=== PATIENT | female | born 1985 | race Hispanic/Latino ===

== ENCOUNTER 2019-09-22 09:26 | Outpatient (CLI) | payer OTHER ==
--- NOTE | 2019-09-22 11:50 | ULT ---
OB ULTRASOUND: Date: 09/22/2019 HISTORY: anatomy. FINDINGS: A single, live intrauterine gestation is seen, with measurements corresponding to an estimated gestat ional age of 21 weeks/1 day and JUSTIN at 02/01/2020. The estimated weight measures 394 gm or 14 o z (93% by Hadlock criteria). Biometry: BPD: 4.99 cm, 21 weeks/1 day HC: 18.72 cm, 21 weeks/1 day AC: 15.70 cm, 21 weeks/6 days FL: 3.55 cm, 21 weeks/2 days heart rate measures 149 beats/minute. Placenta is posteriorly located without evidence of placenta previa. SHAHIDA measures 17.8 cm. Cervical length measures 4.3 cm. A 3 vessel cord, cord insertion, kidneys, bladder, stomach, 4 chamber heart, lateral ventricles , cerebellum, spine, lips/nose, and upper/lower extremities are visualized. No definite anomali es are seen. IMPRESSION: Single, live intrauterine of 21 weeks/1 day estimated gestational age, and JUSTIN at 0. POS: KENY
== END 2019-09-22 09:27 | disposition home or self-care (01) ==
LOC: BICULT 09:26
PROVIDERS: ATTEND Family Medicine
DX: Z34.02 Encounter for supervision of normal first pregnancy, second trimester (principal); Z3A.21 21 weeks gestation of pregnancy
CPT/HCPCS: 76805

== ENCOUNTER 2020-01-30 23:22 | Inpatient (IN) | payer OTHER ==
[~2020-01-30 23:22] MED LIST: Bupivacaine 0.25% HCL 30 ML VIAL ONE
[2020-01-31 00:02] VITALS: BMI 27.6
[2020-01-31 00:28] LABS: Amnisure Test RUPTURE DETECTED (No Rupture)
[2020-01-31 00:29] LABS: Amnisure Internal Control QC ACCEPTABLE (ACCEPTABLE)
[2020-01-31] MEDS ORDERED: hydrALAZINE 20 MG/ML VIAL SLOW IVP PRN (00:43)
[2020-01-31] MEDS ORDERED: Misoprostol 200 MCG TAB PR PRN (00:43)
[2020-01-31] MEDS ORDERED: Acetaminophen 500 MG TAB PO PRN (00:43)
[2020-01-31] MEDS ORDERED: Ibuprofen 800 MG TAB PO PRN (00:43)
[2020-01-31] MEDS ORDERED: Lidocaine 1% (PF) 30 ML VIAL SC PRN (00:43)
[2020-01-31] MEDS ORDERED: Promethazine HCl 25 MG/ML VIAL IM PRN (00:43)
[2020-01-31] MEDS ORDERED: Ondansetron PF 4 MG/2 ML Vial IVP PRN (00:43)
[2020-01-31] MEDS ORDERED: NS w/ Oxytocin 10 units 500 ML IV SCH (01:00)
[2020-01-31] MEDS: Lactated Ringer's 1,000 ML IV SCH ×2 (01:36→18:40)
[2020-01-31] MEDS ORDERED: Butorphanol Tartrate 1 MG/ML VIAL SLOW IVP PRN (02:09)
[2020-01-31 02:14] LABS: Hemoglobin 13.2 g/dL (12.0-16.0); Mean Corpuscular HGB CONC 33.9 g/dL (32.0-36.0); Mean Corpuscular Hemoglobin 30.5 pg (27.0-31.0); Mean Corpuscular Volume 89.7 fL (78.0-98.0); Platelet Count 186 thou/uL (130-400); RBC Distribution Width 12.1 % (11.5-14.5); Red Blood Cell (RBC) Count 4.32 mill/uL (4.20-5.40); White Blood Cell (WBC) Count 9.6 thou/uL (4.8-10.8)
[2020-01-31 02:56] LABS: HBSAg Index 0.14 S/CO (0-0.99); Hep B Surf Ag Non-Reactive S/CO (NonReactive)
[2020-01-31 03:27] LABS: Syphilis Antibody Nonreactive (Nonreactive); Syphilis Antibody Index 0.02 S/CO (<1.00 Non-Reactive)
--- NOTE | 2020-01-31 12:14 | PDOC.BPN ---
- Brief Progress Note OBGYN irrigationist Dr Wells has requested the OB team cover this patient today as he is going out of town until tomorrow. Check out recieved from him. Dr Edmondson has placed IUPC about 10 mins ago. On pitocin.
--- NOTE | 2020-01-31 14:17 | PDOC.BPN ---
- Brief Progress Note S: Patient doing well. Denies pain with contractions. O: Vital signs reviewed and stable. Small amount of vaginal bleeding present. No clots. A&P: Term intrauterine , in labor. SROM ~2200 01/29. IUPC placed 12:10pm 01/30. On pitocin for labor augmentation. Vaginal bleeding: DDX - cervical change, cervical abrasion from IUPC placement, small abruption. heart tracing is Category 1, with moderate variability, accelerations present and no decelerations. Will continue to monitor closely. Baseline fibrinogen ordered. Will type and cross 2 units. Emily SEYMOUR PGY2. This was discussed with Laborist, Dr. Carcamo.
[2020-01-31] MEDS ORDERED: Fentanyl 4 mcg/Bup 0.1% Cadd 100 ML ONE ×2 (14:20→19:48)
[2020-01-31 15:34] LABS: SARS-CoV-2 MS2 Positive; SARS-CoV-2 N Gene Negative; SARS-CoV-2 S Gene Negative; SARS-CoV-2 by NAA Not Detected (NotDetected); SARS-CoV-2 orf1ab Negative
--- NOTE | 2020-01-31 16:35 | PDOC.LDPN ---
Labor & Delivery Progress Note - Subjective Subjective: comfortable, vaginal pressure - Objective Vital signs reviewed and normal: yes General: NAD, resting Uterine fundus: non tender SVE: @ 1630 Dilation: 7 Effacement: 100% Station: -1 FHT: category 1 [place] contractions every: 2-3 min IUPC placed: yes Plan: continue plan of care, pitocin for augmentation -: SVE: 7/100/0 @ 1630 Will recheck in 2 hours. Vaginal bleeding has decreased significantly. Continue to monitor. Epidural placed. GBS negative.
[2020-01-31] MEDS ORDERED: Carboprost 250 MCG/ML AMP ONE (19:21)
[2020-01-31] MEDS ORDERED: Misoprostol 200 MCG TAB ONE (19:21)
[2020-01-31] MEDS ORDERED: Methylergonovine 0.2 MG/ML VIAL ONE (19:21)
--- NOTE | 2020-01-31 20:30 | PDOC.BPN ---
- Brief Progress Note Covid screen neg
[2020-01-31] MEDS: NS / Oxytocin 40 units/1000ml 1,000 ML IV PRN ×2 (22:05→23:35)
--- NOTE | 2020-01-31 22:07 | PDOC.OPDEL ---
OB Operative/Delivery Note Delivery Dr/Surgeon: delvis/shanna Assist: Cristian (M3) Pre-Delivery Diagnosis: active labor Procedure/Post Delivery Dx: operative vaginal delivery (Outlet by Shanna...opne trcation with no pop off, applieed at +5. Total vac time about 6-7 seconds...successful delivery. Done for maternal innability to push. No pop-off. ) Anesthesia: epidural - Findings A Sex: male - 1 min: 7 - 5 min: 9 - Additional Findings/Plan Placenta delivered: spontaneous (christina at 2206; baby at 2202) Repaired Obstetrical Laceration: 2nd degree (The STP muscles repaired by shanna, remainder by Delvis and shanna...no 3rd degree involvement. Carcamo with majority of closure) Estimated blood loss: 350 Compilations/Other Findings: vigorous male Cord gas not sent as baby vigouous Apgars are 7 and 9. Counts correct...no VAG PACKS Post delivery plan: routine recovery
--- NOTE | 2020-01-31 23:37 | PRG ---
DATE OF SERVICE: 01/31/2020 TIME: 2149 hours. We are at bedside in Labor and Delivery 2. In brief, the patient is pushing, and she is between +4 and +5 station. There is a lack of maternal contractions. heart tones are in the normal range. Blood pressure is normal. She does have a little bit of "Turtle sign" which is why I have not yet put on a vacuum. If the baby does not have spontaneous delivery, we may help with an outlet vacuum. For now, continue expulsive efforts. Job ID: [id number]
[2020-02-01] MEDS ORDERED: Lactated Ringer's 500 ML IV PRN (00:18)
[2020-02-01] MEDS ORDERED: Promethazine HCl 25 MG/ML VIAL IM PRN (00:18)
[2020-02-01] MEDS ORDERED: EPHEDRINE 25 MG/5 ML SYRINGE SLOW IVP PRN (00:18)
[2020-02-01] MEDS ORDERED: Naloxone HCl 0.4 mg/ml Vial IVP PRN ×2 (00:18)
[2020-02-01] MEDS ORDERED: Acetaminophen 325 MG TAB PO PRN (00:18)
[2020-02-01] MEDS ORDERED: Ondansetron PF 4 MG/2 ML Vial IVP PRN ×2 (00:18→00:19)
[2020-02-01] MEDS ORDERED: diphenhydrAMINE 50 MG/ML VIAL IVP PRN (00:18)
[2020-02-01] MEDS ORDERED: NS / Oxytocin 40 units/1000ml 1,000 ML IV SCH (00:19)
[2020-02-01] MEDS ORDERED: Benzocaine-Menthol 82.5 ML CAN TOP PRN (00:19)
[2020-02-01] MEDS ORDERED: Lanolin Ointment 7 GM TUBE TOP PRN (00:19)
[2020-02-01] MEDS ORDERED: diphenhydrAMINE 25 MG CAP PO PRN (00:19)
[2020-02-01] MEDS ORDERED: Preparation H Ointment 28 GM TUBE PR PRN (00:19)
[2020-02-01] MEDS ORDERED: Bisacodyl 10 MG SUPP PR PRN (00:19)
[2020-02-01] MEDS ORDERED: hydrALAZINE 20 MG/ML VIAL SLOW IVP PRN (00:19)
[2020-02-01] MEDS ORDERED: Milk Of Magnesia 30 ML UDCUP PO PRN (00:19)
[2020-02-01] MEDS ORDERED: Fentanyl 4 mcg/Bupivacaine 0.1% Cassette 100 ML EPIDURAL SCH (00:30)
[2020-02-01] MEDS ORDERED: Communication Order-Pharmacy FS SCH (00:30)
--- NOTE | 2020-02-01 03:41 | PDOC.PP ---
Post Progress Note Post Day #: 1 Subjective: Doing well, states tired but no complaints. PO intake tolerated: yes Flatus: yes Ambulation: yes Vital Signs (12 hours) Temp Pulse Resp BP 02/01/20 01:25 97.9 F 71 16 117/73 Weight Weight 193 lb Past vitals reviewed - Physical Examination General: NAD Respiratory: non-labored breathing Abdominal: + bowel sounds, lochia, no distention, appropriately TTP Extremities: negative homans (B) Neurological: no gross focal deficits Psychiatric: A&Ox3, normal affect Result Diagrams: 01/31/20 01:41 Additional Labs: Post Labs Blood Type O POSITIVE 01/31/20 02:03 Hep Bs Antigen Non-Reactive S/CO (NonReactive) 01/31/20 02:03 (1) Second degree perineal laceration Code(s): O70.1 - SECOND DEGREE PERINEAL LACERATION DURING DELIVERY Status: Acute (2) Vacuum extraction, delivered, current hospitalization Code(s): O66.5 - ATTEMPTED APPLICATION OF VACUUM EXTRACTOR AND FORCEPS Status : Acute - Assessment/Plan PPD1 doing well s/p vaccuum...second degree lac. Routine PP care for now. Prob DC tomorrow Sunday
[2020-02-01] MEDS: Ibuprofen 800 MG TAB PO SCH ×3 (05:33→21:20)
[2020-02-01] MEDS: Lactated Ringer's 1,000 ML IV SCH (07:48)
[2020-02-01] MEDS: Ferrous Sulfate 325 MG TAB PO SCH ×2 (08:50→16:31)
[2020-02-01] MEDS: Docusate Calcium (SURFAK) 240 MG CAP PO SCH ×2 (08:56→21:20)
[2020-02-01] MEDS: Prenatal Vitamin 1 TAB PO SCH (08:56)
[2020-02-01] MEDS ORDERED: Adacel (T-DAP) 0.5 ML SYRINGE IM ONE (09:00)
[2020-02-02] MEDS: Ibuprofen 800 MG TAB PO SCH ×2 (06:17→15:45)
[2020-02-02 07:59] VITALS: BP 106/70; TEMP 98.3
[2020-02-02] MEDS: Ferrous Sulfate 325 MG TAB PO SCH (08:06)
[2020-02-02] MEDS: Docusate Calcium (SURFAK) 240 MG CAP PO SCH (08:41)
[2020-02-02] MEDS: Prenatal Vitamin 1 TAB PO SCH (08:41)
== END 2020-02-02 16:15 | disposition home or self-care (01) | DRG 807 ==
LOC: L&D/OP 23:22 → L&D 01-31 00:49 → 3SW 02-01 01:37
PROVIDERS: ADMIT Family Medicine; ATTEND Family Medicine
PROC: 0KQM0ZZ Repair Perineum Muscle, Open Approach (ICD-10-PCS; principal; 2020-01-31)
PROC: 10D07Z6 Extraction of Products of Conception, Vacuum, Via Natural or Artificial Opening (ICD-10-PCS; 2020-01-31)
PROC: 10H07YZ Insertion of Other Device into Products of Conception, Via Natural or Artificial Opening (ICD-10-PCS; 2020-01-31)
DX: O69.81X0 Labor and delivery complicated by cord around neck, without compression, not applicable or unspecified (principal); Z37.0 Single live birth; Z3A.38 38 weeks gestation of pregnancy; O70.1 Second degree perineal laceration during delivery; O71.82 Other specified trauma to perineum and vulva; Z11.59 Encounter for screening for other viral diseases; O67.9 Intrapartum hemorrhage, unspecified
CPT/HCPCS: 36415; 51702; 84112; 85027; 85384; 86780; 86850; 86900; 86901; 87340; 87635; 99285; J2210; J2590; J3490; S0020; U0003